=== PATIENT | female | born 1945 | race Caucasian/White ===

== ENCOUNTER → 2018-03-08 09:16 | Outpatient (CLI) | payer MEDICARE, OTHER ==
[2018-03-08 09:56] LABS: APPEARANCE HAZY (CLEAR); BILIRUBIN NEGATIVE (NEGATIVE); COLOR YELLOW (YELLOW); EPITHELIAL CELLS 0-5 /hpf (0-5); GLUCOSE NEGATIVE (NEGATIVE); KETONE NEGATIVE (NEGATIVE); NITRITE NEGATIVE (NEGATIVE); PROTEIN TRACE mg/dL (NEGATIVE); RED CELLS - URINE OCC /hpf (0-5); SPECIFIC GRAVITY 1.015 (1.005-1.020); UROBILINOGEN NORMAL (NORMAL)
[2018-03-08 09:57] LABS: BACTERIA MANY /hpf (NONE SEEN)
== END | disposition home or self-care (01) ==
LOC: D.CT 09:16
PROVIDERS: Internal Medicine Gastroenterology
DX: R10.9 Unspecified abdominal pain (principal); R30.0 Dysuria